=== PATIENT | male | born 1965 | race Caucasian/White ===

== ENCOUNTER → 2016-10-22 | Outpatient (CLI) | payer BC | END | disposition home or self-care (01) | LOC: C.LABSPEC 17:02 | PROVIDERS: ATTEND Nurse Practitioner Adult Health | DX: R30.0 Dysuria (principal); R97.20 Elevated prostate specific antigen [PSA]; R31.29 Other microscopic hematuria ==

== ENCOUNTER → 2016-10-29 | Outpatient (CLI) | payer BC ==
[~2016-10-29] MED LIST: OPTIRAY 320 IV PRN
--- NOTE | 2016-10-29 16:54 | DIAGNOSTIC IMAGING REPORT ---
CT OF THE ABDOMEN AND PELVIS WITH AND WITHOUT CONTRAST HEMATURIA PROTOCOL CLINICAL HISTORY: Microscopic hematuria. COMPARISON STUDY: None. TECHNIQUE: Unenhanced and split bolus phase imaging of the abdomen and pelvis was performed. Injection of 120 cc of Optiray 320 IV was uneventful. A dose lowering technique was utilized adhering to the principles of ALARA. CT DOSE: 2034.66 mGycm FINDINGS: No renal, ureteral or bladder calculi are present. There are no solid renal lesions. No hydronephrosis or hydroureter is present. There are no upper tract filling defects. No bladder lesion is identified. The prostate is moderately enlarged, measuring 5.8 cm in transverse dimension. There is fatty infiltration of the liver. The spleen, adrenal glands and pancreas are normal. There is no lymphadenopathy. The caliber and wall thickness of small and large bowel are normal. There are no suspicious osseous lesions. IMPRESSION: 1. No CT findings to explain hematuria. 2. Moderate enlargement of the prostate. 3. Fatty infiltration of the liver. Electronically signed by: Ap Ortiz M.D. 10/29/2016 4:53 PM Dictated Date/Time: 10/29/2016 4:46 PM
== END | disposition home or self-care (01) ==
LOC: C.CTS 16:15
PROVIDERS: ATTEND Nurse Practitioner Adult Health
DX: R31.29 Other microscopic hematuria (principal); N40.0 Benign prostatic hyperplasia without lower urinary tract symptoms; K76.0 Fatty (change of) liver, not elsewhere classified

== ENCOUNTER → 2016-12-12 | Outpatient (CLI) | payer BC | END | disposition home or self-care (01) | LOC: C.PATHSPEC 17:17 | PROVIDERS: ATTEND Urology | DX: R97.20 Elevated prostate specific antigen [PSA] (principal) ==

== ENCOUNTER 2017-06-27 07:14 | Day surgery (SDC) | payer OTHER ==
[2017-06-27] VITALS (14 sets, daily range): BP systolic 116–162; BP diastolic 71–89; PULSE 61–84; TEMP 36.7–37; O2SAT 95–98; Ht 162.6 cm; Wt 102.5 kg
[~2017-06-27] VITALS: Ht 162.6 cm; Wt 102.5 kg
[~2017-06-27 07:14] MED LIST changes: +ALT/25 PO; +ASPI81TA28 PO; +COEN100C2 PO; +CYCL10TA6 PO; +FLUO20CA35 PO; +NAPR-1231 PO; +OMEP40CA41 PO; -OPTIRAY 320 IV PRN; +ROSU5TAB PO; +TAMS0.4C38 PO; +VNTHFA/IN INH
--- NOTE | 2017-06-27 07:40 | History & Physical Bridge Note ---
H&P Re-Evaluation Bridge Note: I have examined the patient, reviewed the History & Physical and in the interval since the performance of the History & Physical I have noted the following changes of clinical significance: No changes noted
--- NOTE | 2017-06-27 07:42 | Pre Sedation Assessment ---
Pre Sedation Assessment General Date of Sedation: Jun 27, 2017. Vital Signs Past 12 Hours Date Time Temp Pulse Resp B/P (MAP) Pulse Ox O2 Delivery O2 Flow Rate FiO2 06/27/17 07:22 37 84 162/85 (110) 98 Room Air Review Cardiovascular: regular rate, rhythm Lungs: chest non-tender, lungs clear Pre-Sedation Airway Assessment Smoking Status: Never Smoker Hx of Sleep Apnea: No Hx of difficult intubation: No Short Thick Neck: No Thyro-mental Distance: > 3 Finger Breadths Oral Cavity: WNL Mallampati Classification: Class II ASA Classification: Class II NPO Status Date of Last Intake of Fluids: Jun 26, 2017 Time of Last Intake of Fluids: 2099 Date of Last Intake of Solids: Jun 26, 2017 Time of Last Intake of Solids: 2099 Procedure Planning Contraindications for Sedation: None Current Medications Reviewed: Yes Notes The planned sedation has been discussed with the patient. Informed Consent was obtained. I have identified the patient, determined the appropriateness of sedation and have assessed the patient immediately prior to the procedure. All medicine(s) and interventions are by my order.
[2017-06-27] MEDS ORDERED: MIDAZOLAM HCL 1 MG/ML 2ML VIAL ONE (07:46)
[2017-06-27] MEDS ORDERED: FENTANYL CITRATE INJ 50 MCG/1 ML 2 ML VIAL ONE (07:47)
[2017-06-27] MEDS ORDERED: HEPARIN SOD (PORCINE) 1000 UNIT/ML 10 ML VIAL ONE ×2 (07:47→10:31)
[2017-06-27] MEDS ORDERED: NiCARDipine HCL INJ 2.5 MG/ML 10 ML AMP ONE (07:47)
[2017-06-27] MEDS ORDERED: NITROGLYCERIN/D5W 100MCG/ML 20ML SYR ONE (07:48)
[2017-06-27] MEDS ORDERED: LIDOCAINE HCL 1% 20 ML VIAL ONE (08:05)
[2017-06-27] MEDS ORDERED: ADENOSINE IV SOLN 3 MG/ML 20 ML VIAL ONE (09:33)
--- NOTE | 2017-06-27 10:01 | [facility] Post Operative Brief Note ---
Preliminary Procedure Note Procedure Date Jun 27, 2017. Pre-Procedure Diagnosis Angina, Positive Stress Test AUC Score 7 Post-Procedure Diagnosis Moderate CAD, Unsuccessful PCI Procedure(s) Performed Coronary Angiography, Left Heart Cath, LV Angiography Regional Business Manager Dr. Michael Carlton Rock Duster(s) Joel Austin Estimated Blood Loss <15cc Medication(s) Fentanyl (12.5 mcg IV), Heparin (5000u IV), Nicardipine (250 mcg intraarterial after sheath insertion), Versed (1mg IV), Lidocaine 1% (local infiltration) Preliminary Findings Left dominant coronary anatomy Eccentric proximal LAD stenosis 70% at S1 Mild to moderate diffuse atherosclerosis all vessels Ramus trivial LCX very large distribution 30% proximal, 50% OM LV hyperdynamic EF 70% EDP 10 Recommendations PCI without planned CABG Specimens None Fluids (cc crystalloids) 113 Anesthesia Start 0838 End 917 Rowena Mast RN Procedural Complication(s) None Disposition
[2017-06-27] MEDS ORDERED: CLOPIDOGREL BISULFATE 300 MG TAB PO ONE (10:33)
[2017-06-27] MEDS ORDERED: CYCLOBENZAPRINE HCL 10 MG TAB PO PRN (11:00)
[2017-06-27] MEDS ORDERED: SODIUM CHLORIDE 0.9% 1000ML 1,000 ML IV SCH (11:00)
[2017-06-27] MEDS ORDERED: ACETAMINOPHEN 325 MG TAB PO PRN (11:00)
--- NOTE | 2017-06-27 12:21 | CARDIAC CATH REPORT ---
CARDIAC CATHETERIZATION REPORT PROCEDURE: Left heart catheterization, coronary and LV angiography. INDICATIONS: Angina pectoris, abnormal stress testing and cardiac CT. BRIEF CARDIAC HISTORY: The patient is a 52-year-old male with recent symptoms of exertional chest pressure and back pain with some atypical features. Stress testing revealed stress-induced symptoms but without overt ischemia by echocardiography though with the abnormal EKG response. He underwent CT angiography which reflected indeterminate degree of proximal to mid LAD stenosis. He is referred for diagnostic cardiac catheterization with class 2-3 angina. No signs of heart failure. Abnormal testing as noted above. No recent cardiogenic shock or arrhythmias. ACCESS: Right radial artery. CATHETERS: A 6-Romanian long glide sheath, a 5-Romanian brachial 3.5, a 5-Romanian JR5. CONTRAST: Nonionic x112 mL Visipaque. IV FLUIDS: 113 mL normal saline. SEDATION: Start time 8:38 and end 09:18. Monitored by Radha Mast RN. SEDATION: Versed 1 mg IV, fentanyl 12.5 mcg IV. MEDICATIONS: After arterial sheath was placed into the right radial artery, intra-arterial injection of 250 mcg of nicardipine was given. After central access gained, 5000 units IV heparin was given. COMPLICATIONS: None. RADIATION EXPOSURE: Six minutes and 30 seconds fluoroscopy, 1769 milligrays, DAP score 30093. RESULTS: CORONARY ANGIOGRAPHY: 1. Left dominant coronary anatomy was observed. 2. LEFT MAIN: Left main is short and trifurcates to give rise to left anterior descending, a very small ramus intermedius and a large dominant left circumflex. There is no disease in the left main. 3. LEFT ANTERIOR DESCENDING: Left anterior descending is type 3 in distribution, gives rise to a modest first diagonal and a moderate size second diagonal branch. The first diagonal arises just shortly after the origin of the first septal branch. Within the left anterior descending, there is a long area of narrowing of greater than 70% encompassing the origins of the septal and first diagonal branch, lesion is eccentric. The distal left anterior descending is mild to moderate irregularities with most discrete narrowing of 40% at the juncture of the mid and apical segment. 4. RAMUS INTERMEDIUS: This is a trivial branch without significant disease. 5. LEFT CIRCUMFLEX: Left circumflex is very large with extensive distribution, gives rise to first obtuse marginal, a trivial second marginal and 2 posterolateral branches and a long posterior descending artery, reaching well around the apex. Within the left circumflex, there is mild to moderate diffuse irregularities with 30% narrowing just before the takeoff of its AV groove portion. The origin of the first obtuse marginal is narrowed by 50-60%. 6. RIGHT CORONARY ARTERY: The right coronary is not a very small and nondominant in distribution consists of an atrial branch and a single right ventricular branch. There is no disease in the right coronary artery. 7. LEFT VENTRICULAR ANGIOGRAPHY: LV was hyperdynamic with complex ectopy during the injection. EF greater than 70%. There is no significant mitral insufficiency. 8. HEMODYNAMICS: Initial aortic root pressure is 125/67 with a mean of 92. LV pressure was 114/8 with an LVEDP of 10 and aortic root pressure at the end of initial diagnostic procedure was 141/71 with a mean of 99. FINAL IMPRESSIONS: 1. Left dominant coronary anatomy. 2. Mild to moderate diffuse coronary atherosclerotic changes. 3. Focal eccentric greater than 70% stenosis in the proximal left anterior descending at the origin of the first septal branch representing culprit lesion. 4. Moderate narrowing of the origin of the obtuse marginal 50%. 5. Hyperdynamic left ventricular systolic function. RECOMMENDATIONS: The patient will be referred for interrogation of his LAD lesion likely coronary intervention in the same setting.
[2017-06-27] MEDS ORDERED: IV FLUIDS COMPLETED PRN (16:30)
[2017-06-27] MEDS: FLUOXETINE HCL 20 MG CAP PO SCH (19:15)
[2017-06-28] VITALS: O2SAT 97
[2017-06-28 04:00] VITALS: BP 111/71; PULSE 59; TEMP 36.4; O2SAT 97
[2017-06-28 07:06] LABS: BASO % 0.3 %; BASO ABS # 0.02 K/uL (0-0.2); EOS % 3.6 %; EOS ABS # 0.25 K/uL (0-0.5); HEMATOCRIT 40.4 % (42-52); HEMOGLOBIN 14.8 g/dL (14.0-18.0); IG# 0.01 K/uL (0.00-0.02); LYMPH % 29.2 %; LYMPH ABS # 2.03 K/uL (1.2-3.4); MEAN CELL VOLUME 78.4 fL (80-100); MEAN CORPUSCULAR HEMOGLOBIN 28.7 pg (25-34); MEAN CORPUSCULAR HGB CONC 36.6 g/dl (32-36); MEAN PLATELET VOLUME 10.6 fL (7.4-10.4); MONO % 9.2 %; MONO ABS # 0.64 K/uL (0.11-0.59); NEUT % 57.6 %; NEUT ABS # 4.01 K/uL (1.4-6.5); PLATELET COUNT 152 K/uL (130-400); RED CELL DISTRIBUTION WIDTH CV 13.3 % (11.5-14.5); RED CELL DISTRIBUTION WIDTH SD 37.7 fL (36.4-46.3); WHITE BLOOD COUNT 6.96 K/uL (4.8-10.8)
[2017-06-28 07:23] LABS: CALCIUM 8.7 mg/dl (8.5-10.1); CREATININE 0.95 mg/dl (0.60-1.40); POTASSIUM 3.8 mmol/L (3.5-5.1)
[2017-06-28 07:29] VITALS: BP 129/75; PULSE 56; TEMP 36.5; O2SAT 97
[2017-06-28] MEDS: FLUOXETINE HCL 20 MG CAP PO SCH (08:15)
[2017-06-28] MEDS ORDERED: ROSUVASTATIN CALCIUM 20 MG TAB PO SCH (09:00)
[2017-06-28] MEDS ORDERED: ASPIRIN 81 MG ECTAB PO SCH (09:00)
[2017-06-28] MEDS ORDERED: LISINOPRIL 5 MG TAB PO SCH (09:00)
[2017-06-28] MEDS ORDERED: COENZYME Q10 PO SCH (09:00)
[2017-06-28] MEDS ORDERED: TAMSULOSIN HCL 0.4 MG CAP PO SCH (09:00)
[2017-06-28] MEDS ORDERED: CLOPIDOGREL BISULFATE 75 MG TAB PO SCH (09:00)
[2017-06-28] MEDS ORDERED: PLV75 PO (09:54)
--- NOTE | 2017-06-28 09:58 | Discharge Instructions ---
Discharge Instructions Procedure Procedure Date: Jun 28, 2017. Reason for Visit: Chest Pain *Dr Brandt Cheng*. Discharge Discharge Date: Jun 28, 2017. Discharge Diagnosis: Successful drug eluting stent to proximal LAD Last Recorded Wt (Kilograms): 102.500 Instructions Activity Recommendations: limitations as noted below Recommended Home Diet: low cholesterol Allergies: Coded Allergies: No Known Allergies (Unverified , 10/29/16) Provider Instructions ACTIVITY RECOMMENDATIONS: Excess manipulation of the wrist should be avoided for the next 24-48 hours. * No lifting over 2 pounds (approximately a 1/2 gallon of milk) with the utilized arm for 24 hours. * No strenuous activity such as bowling or tennis for 3 days. * Keep the site of the procedure covered with a bandage for 24 hours. *You may shower the day after the procedure. Do not take a tub bath or submerge the puncture site in water for the next 3 days. *Do not operate any motorized equipment for 3 days. SPECIAL CARE INSTRUCTIONS: The site may be slightly bruised and sore following your procedure. Should any of the following occur, contact the Dr. who performed your procedure. 1. Redness/inflammation, swelling, chills, or fever, or colored drainage at procedure site within 3-7 days after your procedure. 2. Coldness, discoloration, ongoing numbness, severe pain, or swelling. Expect mild tingling of hand and tenderness at the puncture site for up to three days. If this persists beyond three days, or other symptoms develop, notify the Dr. who performed your procedure. BLEEDING: If the procedure site on your wrist begins to bleed, do not panic 1. Place 1 or 2 fingers firmly just slightly above the insertion site to stop the bleeding. You may be able to feel your pulse as you hold pressure. 2. Lift your finger after 5 minutes to see if the bleeding has stopped. 3. Once the bleeding has stopped, gently wipe the wrist area clean with a bandage. * If the bleeding from your wrist does not stop after 10 minutes, or if there is a large amount of bleeding or spurting, call 911 (do not drive yourself to the hospital). SKIN IRRITATION: * You may experience some redness and/or swelling in the area where radiation was administered. If any skin irritation occurs, please contact your family physician. FOLLOW UP VISIT: Keep any scheduled doctor appointments. Follow Up Follow-up with: Dr Carlton 2 weeks Cardiac rehab referral [facility] Recommendations: Call your doctor if: * Temperature above 101 degrees * Pain not relieved by pain medicine ordered * There is increased drainage or redness from any incision * You have any unanswered questions or concerns. Your Doctors Instructions noted above were prepared by provider Michael Carlton. Patient Signature Section: Patient Instructions Signature Page Ap Burgess Patient (or Guardian) Signature/Date: I have read and understand the instructions given to me by my caregivers. Caregiver/RN/Doctor Signature/Date: The above-named patient and/or guardian has received patient instructions on this date. + Original Patient Signature Page (only) stays with chart. Please make copy for patient.
[2017-06-28] MEDS ORDERED: METO25TA56 PO (10:00)
[2017-06-28] MEDS ORDERED: METOPROLOL TARTRATE 25 MG TAB PO ONE (10:15)
--- NOTE | 2017-06-28 12:54 | DISCHARGE SUMMARY ---
DISCHARGE DIAGNOSES: 1. Atherosclerotic coronary artery disease with single-vessel obstruction. 2. Left dominant coronary anatomy. 3. Successful drug-eluting stent implantation in the proximal left anterior descending. 4. Hyperlipidemia. 5. Hypertension. OPERATIONS AND PROCEDURES: Left heart catheterization and coronary and LV angiography by Dr. Carlton on 06/27/2017. Successful drug-eluting stent implantation to the proximal LAD by Dr. Ramiro Thomas receiving a Xience Alpine Rx 3.5 x 23. COMPLICATIONS: None. ALLERGIES: None. DISCHARGE: To home. CONDITION: Stable. MEDICATIONS ON DISCHARGE: New medications Clopidogrel 75 mg p.o. daily, metoprolol tartrate 12.5 mg p.o. daily. Continue ramipril 2.5 mg per day, rosuvastatin 5 mg p.o. daily, tamsulosin 0.5 mg p.o. daily, omeprazole 40 mg p.o. daily, Prozac 20 mg p.o. daily, Flexeril p.r.n. 10 mg t.i.d., Coenzyme Q10 100 mg p.o. daily, aspirin 81 mg per day, albuterol inhaler 2 puffs q. 4 hours p.r.n. Stop naproxen. SPECIAL INSTRUCTIONS: No driving or strenuous activity x3 days. Call or go to the ER if sudden bleeding or swelling in the right wrist occurs. No strenuous activities with the right wrist later today. Follow up with Dr. Carlton in approximately 2 weeks' time. Cardiac rehab will be consulted. HISTORY OF PRESENT ILLNESS: The patient is a 52-year-old male with history of hypertension, hyperlipidemia and familial history of premature coronary artery disease, presented with atypical chest pain, and underwent stress testing. Stress testing not notable for overt ischemia, though with ST segment changes and reproducible symptoms of chest discomfort. Cardiac CT demonstrated evidence of noncalcified plaque in the mid and proximal left anterior descending with at least moderate severity. He was referred for diagnostic cardiac catheterization. HOSPITAL COURSE: The patient was admitted initially through the diagnostic cardiac catheterization lab and underwent coronary angiography, left heart catheterization, and LV angiography uneventfully. Study demonstrated left dominant coronary anatomy with mild to moderate diffuse atherosclerosis. There is a focal lesion of 75% in the proximal left anterior descending at the origin of the first diagonal and septal branch. LV systolic function was normal as well as LV end-diastolic pressure. He was referred in the same setting for coronary intervention with iFR, the lesion demonstrated a significant stenosis. He subsequently underwent stenting lesion with good clinical results. Post-procedural course was uneventful. In the morning after the procedure, he was ambulatory in room and hallway and he was discharged to home with notable changes as found. PLAN: Continue following patient closely. I discussed need for uninterrupted dual antiplatelet therapy. I have initiated optimal medical regimen with patient to be discharged on statin, ALINA inhibitor, and beta kyrie; statin at a slightly suboptimal dosing due to past drug good tolerance. Followup will be scheduled with Dr. Carlton in 2 weeks' time.
--- NOTE | 2017-07-22 18:19 | Cardiac Catheterization ---
Procedure Note Procedure Date June 27, 2017. Pre-Procedure Diagnosis Angina, Positive Stress Test AUC Score 7 Post-Procedure Diagnosis Severe CAD, Successful PCI Procedure(s) Performed Drug Eluting Stent, Fractional Flow Shunk Bulk Cooler Installer ernie Electrolytic De Scaler(s) Norman Estimated Blood Loss 15 Medication(s) Fentanyl, Heparin, Nicardipine, Nitroglycerin, Versed Summary of Findings Indication: Angina, positive stress test Access: 6 Fr right radial artery Catheters: EBU 3.5 guide Findings: For full details of patient's coronary angiography please cath report dictated by Dr. Carlton. Briefly, patient found to have severe single vessel disease including a 70 % stenosis involving the proximal LAD. Decision to proceed with iFR. iFR of proximal LAD 0.85 decision to proceed with PCI. -- PCI of proximal LAD -- Antithrombotic therapy: Heparin, clopidogrel Procedure: LM cannulated with EBU 3.5 guide BMW wire passed across lesion into distal vessel Proximal LAD lesion predilated with 2.5 compliant balloon Dilated lesion stented with 3.5 x 23 millimeter Xience drug-eluting stent Stent post-dilated with 4.0 noncompliant balloon IC vasodilators administered for spasm Post procedure BRYAN 3 flow, stent well expanded with minimal residual stenosis and no apparent cardiac complications. Arterial Closure: TR band Summary: 1. Successful PCI of proximal LAD with single drug-eluting stent (3.5 x 23 mm Xience; post dilated with 4.0 NC) Recommendations: To PCU for continued monitoring Loaded with clopidogrel 600 in label rewinder Continue dual-antiplatelet therapy for at least 6 months Continue statin, and ASCVD risk factor modification Consult cardiac Rehab Hemodynamics Rest Ao: 131/71/99 Final Ao: 117/70/91 LV: -- Recommendations PCI without planned CABG Specimens None Radiation Exposure (mGy) 4763 Contrast (mls) 262 Fluids (cc crystalloids) 213 Drains None Anesthesia Moderate Procedural Complication(s) None Disposition PCU ACC Data Cardiac Status Clinical evaluation leading to the procedure CAD Presntation: Stable angina, Positive Stress Test Anginal Classification: CCS III Heart Failure: No, NYHA Class: CCS I Cardiogenic Shock w/in 24Hrs: No Cardiac Arrest w/in 24Hrs: No Imaging studies past 6 months: Yes Stress studies past 6 months: Yes Stress Echocardiogram: Yes - Indeterminant Diagnostic Physician's Name: Michael Carlton M.D. Status: Elective Closure Device Percutaneous Entry Location: Radial Closure Device: Radial Band Recommendations: PCI without planned CABG PCI Indication: Stable Angina, + Stress Test Lesion Segment Name: Proximal LAD Culprit Artery: Yes Stenosis Prior to Rx (%): 70 Chronic Total Occlusion: No IVUS: No FFR: Yes (iFR) Pre-Procedure BRYAN Flow: 3 Previously Treated Lesion: No Lesion Complexity: Non-High/Non-C Lesion Length (mm): 20 Thrombus Present: No Bifurcation Lesion: No Guidewire Across Lesion: Yes Guidewire: Stenosis Post-Procedure (%): 0 Post-Procedure BRYAN Flow: 3 Device(s) Deployed: Yes Intraprocedure Events Significant Dissection: No Perforation: No
== END 2017-06-28 11:47 | disposition home or self-care (01) ==
LOC: C.CATH 07:14 → ENRESERV 10:14 → C.2T 11:39
PROVIDERS: ADMIT Internal Medicine Cardiovascular Disease; ATTEND Internal Medicine Cardiovascular Disease
DX: I25.10 Atherosclerotic heart disease of native coronary artery without angina pectoris (principal); E78.5 Hyperlipidemia, unspecified; I10 Essential (primary) hypertension; R73.03 Prediabetes; E66.9 Obesity, unspecified; Z68.38 Body mass index [BMI] 38.0-38.9, adult; Z79.82 Long term (current) use of aspirin; Z83.3 Family history of diabetes mellitus; Z82.3 Family history of stroke; Z82.49 Family history of ischemic heart disease and other diseases of the circulatory system

== ENCOUNTER → 2017-08-27 | Outpatient (CLI) | payer OTHER ==
[~2017-08-27] MED LIST changes: +METO25TA56 PO; -NAPR-1231 PO; +PLV75 PO
[2017-08-27 16:36] LABS: BLOOD UREA NITROGEN 16 mg/dl (7-18); CREATININE 1.13 mg/dl (0.60-1.40)
== END | disposition home or self-care (01) ==
LOC: C.LAB 15:29
PROVIDERS: ATTEND Urology
DX: N41.9 Inflammatory disease of prostate, unspecified (principal); R97.20 Elevated prostate specific antigen [PSA]

== ENCOUNTER → 2017-08-28 | Outpatient (CLI) | payer OTHER ==
[~2017-08-28] MED LIST changes: +GADAVIST IV PRN
--- NOTE | 2017-08-28 17:22 | DIAGNOSTIC IMAGING REPORT ---
PROSTATE MRI COMBO CLINICAL HISTORY: 52 years-old Male presenting with R97.20 Elevated PSA, prior biopsy on 12/12/2016 negative apart from mild chronic active prostatitis. PSA 11.3 ng/mL on 08/27/2017. TECHNIQUE: Multisequence, multiplanar MR imaging of the prostate was performed before and after the administration of intravenous contrast. Additional postprocessing was performed on a separate [employer] workstation by the radiologist for 3-D volumetric segmentation of the prostate and contouring of region(s) of interest (JUAN) for targeting. IV contrast: 9.5 mL of Gadavist. COMPARISON: CT from 10/29/2016. FINDINGS: Prostate: The prostate measures 5.5 x 5.1 x 5.3 cm (DynaCAD prostate boundary segmentation volume 72 mL). PSA density (PSA/prostate volume): 0.157 ng/mL/mL. Moderate changes of benign prostatic hyperplasia. Precontrast T1 weighted imaging demonstrates no evidence of intrinsic T1 hyperintensity to suggest hemorrhage. Heterogeneity of the right peripheral zone with relative mild atrophy in comparison to the left. No suspicious lesion is apparent in the transition or peripheral zones. Lesion (DynaCAD JUAN) 1: Location: Right posteromedial peripheral zone at the mid gland. The lesion does not extend across the midline. Size: 14 mm (as measured on ADC for PZ lesion and T2WI for TZ lesion) T2W: 2. Linear or wedge-shaped hypointensity or diffuse mild hypointensity, usually indistinct margin. No evidence of extraprostatic extension, seminal vesicle invasion, or neurovascular bundle involvement. DWI: 2. Indistinct hypointense on ADC. DCE: Positive. Focal enhancement corresponding to a suspicious finding, earlier or contemporaneous with adjacent normal tissue. PI-RADS: 2. Clinically significant cancer is unlikely due to be present. Seminal vesicles normal. Bladder: Bladder wall thickening likely indicating chronic outlet obstruction. Bowel: Visualized portion of the rectum normal. Peritoneum: No free fluid in the pelvis. Lymph nodes: No pathologically enlarged lymph nodes by CT size criteria. Vasculature: Iliac vessels patent. Abdominal wall: Normal. Osseous structures: Normal bone marrow signal intensity. IMPRESSION: 1. No suspicious lesion in the transition or peripheral zones for targeted biopsy. 14 mm lesion in the right peripheral zone at the mid gland. PI-RADS: 2. Clinically significant cancer is unlikely due to be present. 2. Benign prostatic hyperplasia. Electronically signed by: Stu Conner M.D. 08/28/2017 5:21 PM Dictated Date/Time: 08/28/2017 4:18 PM
== END | disposition home or self-care (01) ==
LOC: C.MRIBC 13:20
PROVIDERS: ATTEND Urology
DX: N40.0 Benign prostatic hyperplasia without lower urinary tract symptoms (principal); N42.89 Other specified disorders of prostate